=== PATIENT | male | born 1960 | race Caucasian/White ===

== ENCOUNTER 2022-07-07 08:13 | Outpatient (CLI) | payer BC, SELFPAY ==
--- NOTE | ~2022-07-07 | CT_ITS ---
CT Scan of the Chest without Contrast: Clinical Indication: Lung cancer screening, personal history of tobacco dependence Technique: Contiguous sections were acquired throughout the chest without intravenous contrast. Dose reduction technique was used on this scan by utilizing automated exposure control and iterative recon struction technique. The dose-length product (DLP) was 283.05 mGy-cm. COMPARISON: 02/17/2015 Findings: Extremely large calcified subcarinal lymph node is similar to prior exam. Additional much smaller mario alberto cified right hilar lymph nodes are present. No aortic aneurysm. Mild coronary artery calcifications a re noted. There is no evidence of pleural or pericardial effusion. There is probable scarring or atelectasis in the lingula. No suspicious pulmonary nodule seen. There is minimal biapical paraseptal emphysema. Images through the upper abdomen reveal no abnormalities. Impression: Lung-RADS 1: Negative. 12 month follow-up screening CT advised. Evidence of prior granulomatous disease, stable from prior exam. Probable scarring or atelectasis in the lingula. Reviewed, dictated and finalized at [facility]. Impression: Lung-RADS 1: Negative. 12 month follow-up screening CT advised. Evidence of prior granulomatous disease, stable from prior exam. Probable scarring or atelectasis in the lingula.
--- NOTE | ~2022-07-07 | US_ITS ---
EXAMINATION: US carotid duplex BI DATE: 07/07/2022 09:06 INDICATION: Chest tightness. Essential hypertension. Obesity. TECHNIQUE: Grayscale, color Doppler, and pulsed Doppler images of the cervical carotid arteries were obtained. The degree of vessel stenosis is placed in one of the following categories: normal, <50%, 5 0-69%, >=70% but less than near-occlusion, near-occlusion, or total occlusion. Note that percent sten osis relative to normal distal artery lumen diameter is indirectly measured from velocity measurement s as described by Gio, et al. Radiology 2003; 229:340-346. Notes: Normal: Peak systolic velocity <125 centimeters/sec and no plaque <50%. Peak systolic velocity <125 ( EDV <40; ICA/CCA PSV ratio <2.0; used these factors only a tandem lesions or low cardiac output or co ntralateral disease) 50-69 %: PSV 125-230 (EDV 40-100; ratio 2-4) >= 70% but less than near occlusion: PSV greater than 230 (EDV > 100; ratio> 4.0) Near Occlusion: PSV that is variable; markedly narrowed lumen Occlusion: Absent flow on color/spectral Doppler and no lumen on phan scale. COMPARISON: None. FINDINGS: RIGHT: The right common carotid artery (CCA) peak systolic velocity (PSV) is 64 cm/s. The right internal car otid artery (ICA) PSV is 64 cm/s. The right ICA end-diastolic velocity (EDV) is 20 cm/s. The right IC A/CCA PSV ratio is 1.0. The external carotid artery (ECA) PSV is 106 cm/s. There is antegrade flow in the right vertebral artery. LEFT: The left CCA PSV is 63 cm/s. The left ICA PSV is 59 cm/s. The left ICA EDV is 15 cm/s. The left ICA/C CA PSV ratio is 0.9. The ECA PSV is 84 cm/s. There is antegrade flow in the left vertebral artery. IMPRESSION: 1. Less than 50% stenosis in the right internal carotid artery by sonographic criteria. 2. Less than 50% stenosis in the left internal carotid artery by sonographic criteria. Reviewed, dictated and finalized at location [facility]. IMPRESSION: 1. Less than 50% stenosis in the right internal carotid artery by sonographic c riteria. 2. Less than 50% stenosis in the left internal carotid artery by sonographic cr [place].
== END 2022-07-07 08:14 ==
LOC: MICIMG 08:15
PROVIDERS: PCP Family Medicine; Visit Provider Physician Assistant Medical
DX: I10 Essential (primary) hypertension (principal); E66.01 Morbid (severe) obesity due to excess calories; D75.1 Secondary polycythemia; Z12.2 Encounter for screening for malignant neoplasm of respiratory organs; Z87.891 Personal history of nicotine dependence; I65.23 Occlusion and stenosis of bilateral carotid arteries; R91.8 Other nonspecific abnormal finding of lung field
CPT/HCPCS: 71271; 93880

== ENCOUNTER 2022-09-30 07:35 | Outpatient (CLI) | payer BC, SELFPAY ==
--- NOTE | ~2022-09-30 | NM_ITS ---
EXAMINATION: NM jordan stress w perfusion DATE: 09/30/2022 09:34 INDICATION: Dyspnea on exertion. Chest pain. TECHNIQUE: Rest images were obtained following intravenous administration of 10.0 mCi Tc99m tetrofosm in (Myoview). The patient was infused intravenously with Lexiscan (Regadenoson). Then, 32.6 mCi Tc99m tetrofosmin (Myoview) was administered intravenously, and stress images were obtained. Data was christopher nstructed into short axis and horizontal and vertical long axis SPECT images. Gated SPECT images were also obtained. COMPARISON: None. FINDINGS: There is no definite reversible or fixed perfusion abnormality to suggest ischemia or infar ction. There is normal left ventricular chamber size, wall motion and ejection fraction. Left ventr icular ejection fraction measures 54%. IMPRESSION: 1. Normal myocardial perfusion at rest and during stress. 2. Left ventricular ejection fraction measuring 54%. Reviewed, dictated and finalized at location [facility].
--- NOTE | 2022-09-30 08:02 | EST_ITS ---
Patient Info Name: Reno Lyons Age: 62 years : 1960 Gender: Male Ht: 69 in Wt: 250 lbs BSA: 2.40 m2 HR: 84 bpm BP: 136 / 78 mmHg Heart Rhythm: Sinus Rhythm Exam Date: 09/30/2022 8:40 AM Exam Location: [facility], [place] Stress Patient Status: Outpatient Admit Date: 09/30/2022 Staff Ordering Physician: Mike Sinha APRN Attending Provider: Mike Sinha APRN Exercise Technologist: Surekha De Los Santos CT Exercise Physician: Dyllan Wesley DO Exam Type: CA stress jordan w NM Study Info Indications R06.09 - Other forms of dyspnea A regadenoson stress test was performed. Summary 1. 1. Negative lexiscan stress test for ischemic ST changes by ECG criteria. 2. 2. Stable hemodynamics throughout the test. 3. 3. Nuclear scan to follow and will be reported separately. Please correlate with it. 4. 4. Patient informed of the above results. Protocol: Lexiscan Stress ECG Details Stage: REST Duration (min): 1 min : 2 sec HR (bpm): 86 SBP (mmHg): 136 DBP (mmHg): 78 Stage: REST Duration (min): 7 min : 22 sec HR (bpm): 84 SBP (mmHg): 136 DBP (mmHg): 78 Stage: STAGE 1 Duration (min): 0 min : 59 sec HR (bpm): 95 SBP (mmHg): 133 DBP (mmHg): 74 Stage: RECOVERY Duration (min): 1 min : 0 sec HR (bpm): 101 SBP (mmHg): 133 DBP (mmHg): 74 Stage: RECOVERY Duration (min): 2 min : 0 sec HR (bpm): 97 SBP (mmHg): 133 DBP (mmHg): 74 Stage: RECOVERY Duration (min): 2 min : 54 sec HR (bpm): 91 SBP (mmHg): 133 DBP (mmHg): 74 Rest HR: 84 bpm Peak HR: 106 bpm Rest Sys BP: 136 mmHg Peak Sys BP: 133 mmHg Max Pred HR: 160 bpm % Max Pred HR: 66 % Target HR: 136 bpm Max RPP: 14,098 bpm*mmHg Termination Reason: Completed protocol Cardiac Symptoms: Shortness of breath Total Time: 1 min : 0 sec Rest Dailey BP: 78 mmHg Peak Dailey BP: 74 mmHg Total Dose: 0.4 mg Resting ECG Sinus rhythm. Stress ECG No ST changes. Arrhythmias None. Report Signatures
== END 2022-09-30 07:36 | disposition home or self-care (01) ==
PROVIDERS: PCP Family Medicine; Visit Provider Nurse Practitioner Family
DX: R06.09 Other forms of dyspnea (principal); R07.9 Chest pain, unspecified
CPT/HCPCS: 78452; 93017; A9502; J2785

== ENCOUNTER 2022-11-01 15:54 | Outpatient (CLI) | payer BC, SELFPAY ==
[2022-11-01 16:05] LABS: Basophils Absolute Auto 0.1 K/mm3 (0.0-0.1); Basophils Percent Auto 0.9 % (0.2-1.2); Eosinophils Absolute Auto 0.4 K/mm3 (0-0.3); Eosinophils Percent Auto 3.1 % (0-4.4); Hematocrit 52.4 % (42.0-52.0); Hemoglobin 18.1 g/dL (14.0-18.0); Immature Granulocyte Absolute 0.11 K/mm3 (0.00-0.031); Immature Granulocyte Percent A 0.9 % (0-0.5); Lymphocytes Absolute Auto 2.67 K/mm3 (0.9-3.2); Lymphocytes Percent Auto 20.8 % (18.3-44.2); Mean Corpuscular HGB Conc 34.5 g/dl (32-36); Mean Corpuscular Hemoglobin 30.7 pg (26-34); Mean Platelet Volume 9.3 fl (7.4-10.4); Monocytes Absolute Auto 1.3 K/mm3 (0.1-0.6); Monocytes Percent Auto 10.1 % (2.6-8.5); Neutrophils Absolute Auto 8.3 K/mm3 (1.3-6.7); Neutrophils Percent Auto 64.2 % (45.5-73.1); Platelet Count Result 230 k/mm3 (150-375); Red Blood Count 5.89 M/mm3 (4.6-6.20); Red Cell Distribution Width 13.1 % (11.5-14.5); White Blood Count 12.9 K/mm3 (4.5-10.0)
[2022-11-01 16:40] LABS: Alanine Aminotransferase 30 U/L (6-50); Albumin Level 4.5 g/dL (3.5-5.1); Alkaline Phosphatase 91 U/L (38-126); Anion Gap 7 mmol/L (8-16); Aspartate Amino Transferase 30 U/L (17-59); Bilirubin,Total 0.5 mg/dL (0.2-1.3); Blood Urea Nitrogen 16 mg/dL (9-20); CRP 4.7 mg/dL (<1.0); Calcium 9.4 mg/dL (8.4-10.2); Carbon Dioxide 26 mmol/L (22-30); Chloride 99 mmol/L (98-107); Estimated Glomerular Filt Rate > 60; Glucose 99 mg/dL (65-110); Sodium 132 mmol/L (137-145)
[2022-11-03 20:35] LABS: Erythropoietin (EPO) 11.4 mIU/mL (2.6-18.5)
== END 2022-11-01 15:55 | disposition home or self-care (01) ==
LOC: ANHLAB 15:56
PROVIDERS: PCP Family Medicine; Visit Provider Internal Medicine Hematology & Oncology
DX: D72.829 Elevated white blood cell count, unspecified (principal); D75.1 Secondary polycythemia
CPT/HCPCS: 36415; 80053; 82668; 82728; 85025; 86140

== ENCOUNTER 2022-11-04 14:07 | Outpatient (CLI) | payer BC, SELFPAY ==
--- NOTE | 2022-11-09 16:12 | WPDPFTINT ---
PFT Procedure Performed PFT Procedure Performed Spirometry with Pre/Post Bronchodilator Plethysmography (Lung Vol) Diffusing Cap (DLCO) Flow Vol Loop PFT Interpretation DOS: 11/04/2022 REQUESTING: Mike Sinah APRN REASON FOR TESTING: Chronic obstructive bronchitis PULMONARY FUNCTION TESTS Repeatability of spirometry FEV1 pre-bronchodilator maneuver is Grade B. Repeatability of spirometry FEV1 post-bronchodilator is Grade C. Spirometry: FEV1 is 2.06 L, 59%, moderately reduced. FVC is 3.23 L, 72%, mildly reduced. FEV1 / FVC ratio 64%, reduced. FEF 25-75 is 1.14 L, 39%, severely reduced. After bronchodilator, FEV1 increased 31%, 2.69 L, 78% predicted. after bronchodilator, FVC increased 24%, 4.0 L, 89% predicted. These are significant increases in flows. The FEF 25-75 increased by 30%, 1.49 L, becomes 51% predicted. Lung volumes: Total lung capacity is 7.19 L, 106% predicted, normal. Residual volume 3.90 L, 179% predicted, severely increased consistent with air trapping. RV/TLC is 54%, elevated, air trapping. Airway resistance is increased, 2.76, 183% predicted. Diffusion: DLCO is 21.9, 76%, low end of normal. DLCO/VA is 4.44, 103%, normal. Flow volume loop: There is mild coving of the expiratory limb that normalizes after bronchodilator administration. IMPRESSION: This study shows a moderate obstructive ventilatory impairment which is severe in the small airways, excellent response to bronchodilator, severe air trapping with normal diffusion. No prior study for comparison. Evelyn Arevalo MD
--- NOTE | 2022-11-09 16:25 | WPDSIXMINUTE ---
Six Minute Walk Procedure Procedure Performed Pulmonary Stress Test (6 min walk) Six Minute Walk Six Minute Walk: DATE OF SERVICE: 11/04/2022 REQUESTING: Mike Sinha APRN REASON FOR TESTING: Shortness of breath SIX MINUTE WALK This test was conducted per ATS guidelines. The initial saturation was 91%, and initial heart rate was 94 beats per minute. The patient walked without stopping, completing 1200 feet/ 365.7 meters. The saturation at the end of testing was 93%, and the heart rate was 110 beats per minute. IMPRESSION: The patient did not require supplemental oxygen with exertion. Evelyn Arevalo MD
== END 2022-11-04 14:08 | disposition home or self-care (01) ==
LOC: ANHPFT 14:09
PROVIDERS: PCP Family Medicine; Visit Provider Nurse Practitioner Family
DX: J44.9 Chronic obstructive pulmonary disease, unspecified (principal); R06.09 Other forms of dyspnea; R94.2 Abnormal results of pulmonary function studies
CPT/HCPCS: 94060; 94618; 94726; 94729

== ENCOUNTER 2023-01-26 07:49 | Outpatient (CLI) | payer BC, SELFPAY ==
--- NOTE | 2023-01-26 07:55 | ECHO_ITS ---
Patient Info Name: Reno Lyons Age: 62 years : 1960 Gender: Male Ht: 69 in Wt: 250 lbs BSA: 2.40 m2 HR: 93 bpm BP: 158 / 90 mmHg Heart Rhythm: Sinus Rhythm Technical Quality: Fair Exam Date: 01/26/2023 8:08 AM Exam Location: [facility] Patient Status: Outpatient Admit Date: 01/26/2023 Staff Ordering Physician: Mike Sinha APRN Continuous Improvement Black Belt: Brigid Reza RDCS Attending Provider: Mike Sinha APRN Referring Physician: Bharath HUGGINS; Exam Type: CA echo doppler color flow Study Info Indications R06.09 - Other forms of dyspnea Complete two-dimensional, color flow and Doppler transthoracic echocardiogram is performed. Summary 1. Complete two-dimensional, color flow and Doppler transthoracic echocardiogram is performed. 2. Left ventricular chamber dimension is normal. 3. Left ventricular systolic function is normal, estimated at 60-65%. 4. The left ventricular diastolic function is grade II diastolic dysfunction. 5. E/e' 11 is mildly elevated. 6. There is mild aortic valve regurgitation. 7. No pulmonary hypertension, estimated pulmonary arterial systolic pressure is 26 mmHg. Left Ventricle E/e' 11 is mildly elevated. Left ventricular chamber dimension is normal. Left ventricular systolic function is normal, estimated at 60-65%. The left ventricular diastolic function is grade II diastolic dysfunction. Right Ventricle Right ventricular systolic function is normal and with normal TAPSE 2.4 cm. Right ventricular chamber dimension is normal. Left Atria Left atrial chamber dimension is normal. Right Atria Right atrial chamber dimension is normal. Aortic Valve The aortic valve is trileaflet. There is no aortic valve stenosis. There is mild aortic valve regurgitation. Pulmonic Valve There is no pulmonic regurgitation. Mitral Valve There is no mitral valve stenosis. There is no mitral valve regurgitation. Tricuspid Valve There is no tricuspid valve regurgitation. No pulmonary hypertension, estimated pulmonary arterial systolic pressure is 26 mmHg. Pericardium/Pleural There is no pericardial effusion. Inferior Vena Cava Normal inferior vena cava with >50% collapse upon inspiration consistent with normal right atrial pressure, 5 mmHg. Aorta The aortic root size at the sinus of Valsalva is normal. Left Ventricular Outflow Tract Name Value Normal LVOT 2D LVOT Diameter 2.0 cm LVOT Doppler LVOT Peak Gradient 5 mmHg LVOT Mean Gradient 3 mmHg LVOT VTI 19 cm LVOT VTI/AV VTI Ratio 0.8 LVOT Stroke Volume 60 ml LVOT CO 4.9 l/min LVOT CI 2.0 l/min/m2 Pulmonic Valve Name Value Normal RVOT Doppler RVOT Peak Gradient 2 mmHg PV Doppler
== END 2023-01-26 07:50 | disposition home or self-care (01) ==
LOC: ANHCARD 07:52
PROVIDERS: PCP Family Medicine; Visit Provider Nurse Practitioner Family
DX: R93.1 Abnormal findings on diagnostic imaging of heart and coronary circulation (principal); R06.09 Other forms of dyspnea
CPT/HCPCS: 93306

== ENCOUNTER 2023-07-11 13:22 | Outpatient (CLI) | payer BC, SELFPAY ==
--- NOTE | ~2023-07-11 | CT_ITS ---
CT Scan of the Chest without Contrast: Clinical Indication: Lung cancer screening, nicotine dependence Technique: Contiguous sections were acquired throughout the chest without intravenous contrast. Dose reduction technique was used on this scan by utilizing automated exposure control and iterative recon struction technique. The dose-length product (DLP) was 285.49 mGy-cm. Findings: There is no evidence of any significant mediastinal, hilar or axillary lymphadenopathy. Large densely calcified subcarinal shreyas mass is present. The mediastinal soft tissues appear normal. There is no evidence of pleural or pericardial effusion. The lungs are clear. No pulmonary nodules or infiltrates are noted. There is mild upper lobe emphysem a. Images through the upper abdomen reveal no abnormalities. Impression: Lung RADS 1: Negative. [address] advised. Mild emphysema. Reviewed, dictated and finalized at [facility]. Impression: Lung RADS 1: Negative. [address] advised. Mild emphysema.
== END 2023-07-11 13:23 ==
LOC: MICIMG 13:23
PROVIDERS: PCP Nurse Practitioner Family; Visit Provider Nurse Practitioner Family
DX: Z12.2 Encounter for screening for malignant neoplasm of respiratory organs (principal); J43.9 Emphysema, unspecified; Z87.891 Personal history of nicotine dependence
CPT/HCPCS: 71271